=== PATIENT | female | born 1995 | race Hispanic/Latino ===

== ENCOUNTER 2019-08-12 01:04 | Emergency (ER) | payer SELFPAY ==
[~2019-08-12] VITALS: Ht 170.2 cm; Wt 140.6 kg
[2019-08-12] MEDS ORDERED: BENZOCAINE 20% SPR 60 ML CAN ONE (01:57)
[2019-08-12] MEDS ORDERED: BENZOCAINE/TETRACAINE/BUTAMBEN AERO SPRAY 56 GM CAN TOP ONE (02:00)
== END 2019-08-12 02:54 | disposition home or self-care (01) ==
LOC: FSED 01:04
DX: T17.228A Food in pharynx causing other injury, initial encounter (principal); R09.89 Other specified symptoms and signs involving the circulatory and respiratory systems
CPT/HCPCS: 99282